=== PATIENT | female | born 1950 | race Caucasian/White ===

== ENCOUNTER 2018-02-22 00:05 | Day surgery (SDC) | payer MEDICARE, BC ==
[~2018-02-22] VITALS: Ht 172.1 cm; Wt 83.9 kg
[~2018-02-22 00:05] MED LIST: ACYC-50 PO; ASPI81TA94 PO; AZIT-1 PO; CALC-852 PO; CALC500T76 PO; FLU45SYR25 IM ONLY; FLU60SYR30 IM ONLY; GLUC-198 PO; GOLYTE PO; IBU200 PO; LEVO-3 PO; LEVO88TA45 PO; METH4TAB66 PO; MULT-1335 PO; MULT-885 PO; OMEP40CA48 PO; PER PO; PNEU0.5D3 IM; SIMV-49 PO; SULF1TAB24 PO; VEN75 PO; VENL75CA58 PO
[2018-02-22] MEDS ORDERED: LIDO/EPI 1% MDV 1:100,000 20ML INFIL ONE (06:37)
[2018-02-22] MEDS ORDERED: LIDOCAINE MPF 1% 5 ML VIAL ONE (07:48)
[2018-02-22] MEDS ORDERED: PROPOFOL EMUL(*) 10MG/ML 20 ML 60 ML ONE (07:48)
[2018-02-22] MEDS ORDERED: ONDANSETRON 4 MG/2 ML VIAL ONE (07:54)
[2018-02-22 09:00] VITALS: BP 114/88
[2018-02-22] MEDS ORDERED: NORMOSOL R SOLN(*) 1000 ML BAG 1,000 ML IV PRN (09:25)
[2018-02-22] MEDS ORDERED: LIDOCAINE/SOD BICARB 8.4% SYR ID ONE (09:25)
[2018-02-22 10:45] VITALS: BP 113/74
--- NOTE | 2018-02-22 10:55 | Short(Outpt) Discharge Summary ---
Discharge Summary Reason for Hosp/Final Diag: (1) Skin lesion Status: Chronic Hospital Course & Plan: Skin lesion removed from right buttock and colonoscopy with polypectomy x2 completed without problems. (2) Colon cancer screening Status: Chronic Departure Discharge to: Home, Self Care Discharge Instructions Home Meds Active Scripts Acyclovir (ACYCLOVIR) 400 Mg Tablet, 1 TAB PO 5XD Y for cold sores, #25 TAB 1 Refill Every 4 hours while awake - 5 times per day. Prov:ROBBIE HECTOR MD 02/15/18 Peg/Electrolytes (GOLYTELY SOLUTION) 4,000 Ml Soln, 1 GAL PO ONCE, #1 GAL 0 Refills Prov:MELISSA RUIZ MD 01/25/18 Omeprazole (OMEPRAZOLE) 40 Mg Capsule.dr, 1 CAP PO QDAY, #90 CAP 4 Refills Prov:ROBBIE HECTOR MD 04/29/17 Venlafaxine Hcl (EFFEXOR XR) 75 Mg Cap.er.24h, 1 CAP PO QDAY, #90 CAP 4 Refills Prov:ROBBIE HECTOR MD 04/29/17 Levothyroxine Sodium (LEVOTHYROXINE SODIUM) 88 Mcg Tablet, 1 TAB PO QDAY, #90 TAB 4 Refills Prov:ROBBIE HECTOR MD 04/29/17 Reported Medications Glucosa Restrepo 2KCL/Chondroitin Restrepo (GLUCOSAMINE & CHONDROITIN CAP) 1 Each Capsule, 1 CAP PO QDAY, CAPSULE 02/05/15 Multivitamin (DAILY VITAMIN) 1 Each Tablet, 1 TAB PO QDAY 02/04/15 Calcium Carbonate/Vitamin D3 (CALCIUM + VITAMIN D TABLET) 1 Each Tablet, 1 TAB PO QDAY 02/04/15 Diet: Regular Activity: As Tolerated Special Instructions: Your colonoscopy was completed without any problems and your prep was excellent (Good Job!!). I removed 2 polyps from your colon and they were sent to pathology in addition to the skin lesion I removed from your buttock. My office will call you in the next 2 weeks to let you know what the polyps and skin lesion are and when your next colonoscopy should be. There are no sutures to be removed. Leave the white dressing in place until tomorrow (02/23/18) and then you can remove it and shower. I also found diverticulosis in your sigmoid colon. This is a benign condition where pockets (diverticuli) develop in your colon. The only recommendation for these is to include plenty of fruits and vegetables in your diet and consider taking a daily fiber supplement such as citrucel to decrease the pressures within your colon. MELISSA RUIZ MD February 22, 2018 10:55
[2018-02-22 11:01] VITALS: BP 112/75
[2018-02-22 11:08] VITALS: BP 114/75
[2018-02-22 11:10] VITALS: BP 120/72
--- NOTE | 2018-03-08 13:29 | OPERATIVE REPORT 1 ---
EVENT DATE: February 22, 2018 SURGEON: Evens Truong MD ANESTHESIOLOGIST: Kev Powell MD ANESTHESIA: IV sedation for colonoscopy and local for the skin tag. PREOPERATIVE DIAGNOSIS Skin tag, right buttock. POSTOPERATIVE DIAGNOSIS Skin tag, right buttock. PROCEDURE PERFORMED Excision of skin tag from right buttock. INDICATIONS This is a 68-year-old female who presented for screening colonoscopy but also had a skin tag on her buttock that she was requesting for me to remove. PROCEDURE The patient was brought to the endoscopy suite, placed in the left lateral decubitus position on the table. Her right buttock was prepped and draped in sterile fashion and anesthetized with 1% lidocaine without epinephrine. I then simply grasped the skin tag and amputated it flush with the skin, and this was passed off the field. A bandage was placed over the wound. The patient tolerated the procedure without any problems, and we proceeded with her colonoscopy at this point. Please refer to the colonoscopy report for details about that. MTDJordan
== END 2018-02-22 11:20 | disposition home or self-care (01) ==
LOC: OR 00:05
PROVIDERS: ATTEND Surgery
DX: Z12.11 Encounter for screening for malignant neoplasm of colon (principal); L91.8 Other hypertrophic disorders of the skin; L98.8 Other specified disorders of the skin and subcutaneous tissue; K63.5 Polyp of colon; K57.30 Diverticulosis of large intestine without perforation or abscess without bleeding
CPT/HCPCS: 00811; 11200; 45385; 88305; J2001; J2405; J2704